=== PATIENT | female | born 1960 | race Caucasian/White ===

== ENCOUNTER → 2020-08-14 | Day surgery (SDC) | payer BC ==
[2020-08-14] VITALS (7 sets, daily range): BP systolic 138–161; BP diastolic 72–85
[~2020-08-14] VITALS: Ht 170.2 cm; Wt 95.3 kg
[~2020-08-14] MED LIST: Atropine Sulfate 0.4mg/ml inj IVP PRN; BSS 15ml BTL ONE; BSS 500ml btl ONE; Bupivacaine 0.75% 30ml vial INJ ONE; Cyclopentolate 2% Opth Sol LEFT EYE ONE; DiphenhydrAMINE 50mg/ml Inj IVP PRN; EPINEPHrine 1mg/1ml Amp ONE; Goniotaire 2.5% Opth Soln - 15ml ONE; HYDROcodone/Acetamin 5/325 tab ORAL PRN; HYDROcodone/Acetamin 7.5/325 tab ORAL PRN; Hydromorphone 0.5mg/0.5ml inj IVP PRN; Indocyanine Green 25mg Inj INJ ONE; Ketorolac 30mg Inj IV PRN; LORazepam Inj 2mg/ml 1ml IV PRN; LOSARTAN POTASS25 MG ORAL; LR 1000ml 1,000 ML IVLG SCH; LR 1000ml ONE; Labetalol 5mg/ml 20ml vial IV PRN; Lidocaine 1% MPF 10mg/ml 5ml ONE; Lidocaine 4% Amp 5ml ONE; Meperidine 25mg/1ml Inj (FOR RIGORS ONLY) IV PRN; Metoclopramide 10mg/2ml Inj IVP PRN; Midazolam 2mg/2ml Inj IVP PRN; NS Irrig 1000ml ONE; Phenylephrine 2.5% Op 2ml Soln LEFT EYE ONE; Povidone-Iodine 5% opth solution ONE; Sodium Hyaluronate 10 mg/ml 0.85ml ONE; Sterile Water Irrig 1000ml IRRIG ONE; Tetracaine 0.5% Opth 4ml Soln ONE; Tropicamide 1% Opth 15ml Soln LEFT EYE ONE; Vigamox Opth Soln 3ml LEFT EYE ONE; fentaNYL 100 mcg/2 mL IV PRN; oxyCODONE HCL/Acetaminophen 5/325mg ORAL PRN
--- NOTE | 2020-08-14 09:45 | NUR ---
ED Nurse Note: Pt walked in from home for eye surgery @ noon today with Dr. Tuttle. Pt has retinal detachment of left eye. Pt tested positive COVID yesterday with mild symptoms x 1 week. Respirations even and unlabored on room air. Vitals stable as documented. A+Ox4, speaking in complete sentences.
--- NOTE | 2020-08-14 09:52 | Emergency Room Report ---
History of Present Illness General Chief Complaint: General Complaint Source: Patient, Medical Record Present Illness HPI 59-year-old female here for preoperative eyedrops before surgery. Patient has a left retinal detachment. Tested positive for Covid yesterday. Due for repair of left retinal detachment today. Was told that she needs cyclopentolate, moxifloxacin, phenylephrine, tropicamide eyedrops. She has no complaints at this time. Allergies: Coded Allergies: No Known Allergies (Unverified , 08/14/20) COVID-19 Screening Contact w/high risk pt: No Experienced COVID-19 symptoms?: No COVID-19 Testing performed [employer]: Yes COVID-19 Screening: Positive COVID-19 COVID-19 Testing Source: 08/13/20 Patient History Now: No Nursing Documentation-[facility] Hx Hypertension: Yes Review of Systems All Other Systems: negative except mentioned in HPI Physical Exam Vital Signs Date Time Temp Pulse Resp B/P (MAP) Pulse Ox O2 Delivery O2 Flow Rate FiO2 08/14/20 09:42 98.2 91 20 167/88 (114) 96 Room Air Sp02 EP Interpretation: reviewed, normal General Appearance: no apparent distress, alert, non-toxic Head: normocephalic, atraumatic Eyes: bilateral eye normal inspection, bilateral eye PERRL ENT: hearing grossly normal, normal pharynx, no angioedema, normal voice Neck: full range of motion, supple/symm/no masses Respiratory: chest non-tender, lungs clear, normal breath sounds, speaking full sentences Cardiovascular #1: regular rate, rhythm, no edema Cardiovascular #2: 2+ carotid (R), 2+ carotid (L), 2+ radial (R), 2+ radial (L), 2+ dorsalis pedis (R), 2+ dorsalis pedis (L) Gastrointestinal: normal bowel sounds, non tender, soft, non-distended, no guarding, no rebound Rectal: deferred Genitourinary: normal inspection, no CVA tenderness Musculoskeletal: back normal, normal range of motion, gait/station normal, non- tender Neurologic: alert, motor strength/tone normal, oriented x3, sensory intact, responsive, speech normal Psychiatric: judgement/insight normal, memory normal, mood/affect normal, no suicidal/homicidal ideation Lymphatic: no adenopathy Medical Decision Making Diagnostic Impression: Primary Impression: Pre-op evaluation ER Course 16-year-old female with left retinal detachment here for preoperative eyedrops before her surgery. Patient had an unremarkable physical examination and was in no acute distress. Normal vital signs. She tested positive for COVID-19 yesterday but had normal oxygen saturation on room air and was in no distress. Patient was given the 4 eyedrops that were indicated on the preoperative checklist from the patient's sales and service advisor. Taken to surgery directly from the emergency department. Last Vital Signs Date Time Temp Pulse Resp B/P (MAP) Pulse Ox O2 Delivery O2 Flow Rate FiO2 08/14/20 09:42 98.2 91 20 167/88 (114) 96 Room Air Reji Lopez M.D. Aug 14, 2020 09:52
--- NOTE | 2020-08-14 10:07 | NUR ---
ED Nurse Note: spoke with Morris in pharmacy who said the eyedrops will be ready for pickup in 15 minutes.
--- NOTE | 2020-08-14 10:25 | NUR ---
ED Nurse Note: called surgery to verify eye drops. Fax sent with medications. Per surgery, okay to give eyedrops now.
--- NOTE | 2020-08-14 11:52 | Anethesia Preoperative Eval ---
Anesthesia Pre-op PMH/ROS General Date of Evaluation: Aug 14, 2020 Time of Evaluation: 11:46 Anesthesiologist: Carla ASA Score: ASA 3 Mallampati Score Class I : Soft palate, uvula, fauces, pillars visible Class II: Soft palate, uvula, fauces visible Class III: Soft palate, base of uvula visible Class IV: Only hard plate visible Mallampati Classification: Class III Surgeon: Marry Diagnosis: Retinal Detachment Surgical Procedure: Vitrectomy OS Anesthesia History: none Family History: no anesthesia problems Allergies: Coded Allergies: No Known Allergies (Unverified , 08/14/20) Medications: see eMAR Patient NPO?: Yes Past Medical History Cardiovascular: Reports: HTN Hematology/Immune: Reports: other - Covid + Other: obesity - BMI 35 Anesthesia Pre-op Phys. Exam Physician Exam Last Vital Signs Date Time Temp Pulse Resp B/P (MAP) Pulse Ox O2 Delivery O2 Flow Rate FiO2 08/14/20 09:42 98.2 91 20 167/88 (114) 96 Room Air Constitutional: NAD Neurologic: CN 2-12 intact Cardiovascular: RRR Respiratory: CTA Gastrointestinal: S/NT/ND Airway Exam Mallampati Score: Class III MO: full ROM: limited Teeth: missing, intact Anesthesia Pre-op A/P Risk Assessment & Plan Assessment: ASA 3 Plan: TIVA Status Change Before Surgery: No Samuel Aguirre MD Aug 14, 2020 11:52
--- NOTE | 2020-08-14 11:55 | Immediate Post-Op Evaluation ---
Immediate Post-Op Evalulation Immediate Post-Op Evalulation Procedure: Vitrectomy OS Date of Evaluation: Aug 14, 2020 Time of Evaluation: 14:02 IV Fluids: 800 L:R Blood Products: 0 Estimated Blood Loss: 3 Urinary Output: 0 Blood Pressure Systolic: 146 Blood Pressure Diastolic: 83 Pulse Rate: 86 Respiratory Rate: 18 O2 Sat by Pulse Oximetry: 100 Temperature (Fahrenheit): 97.6 Pain Score (1-10): 2 Nausea: No Vomiting: No Complications 0 Patient Status: awake, reacts, patent, none Hydration Status: adequate Samuel Aguirre MD Aug 14, 2020 11:55
--- NOTE | 2020-08-14 12:15 | NUR ---
ED Nurse Note: Pt transferred safely to OR. Pt left with all belongings.
--- NOTE | 2020-08-14 13:50 | 48 Hour Post Anesthesia Eval ---
Post Anesthesia Evaluation Procedure: Vitrectomy OS Date of Evaluation: Aug 14, 2020 Time of Evaluation: 16:23 Blood Pressure Systolic: 164 0: 91 Pulse Rate: 89 Respiratory Rate: 18 Temperature (Fahrenheit): 98 O2 Sat by Pulse Oximetry: 92 Airway: patent Nausea: No Vomiting: No Pain Intensity: 2 Hydration Status: adequate Cardiopulmonary Status: Stable Mental Status/LOC: patient returned to baseline Follow-up Care/Observations: 0 Post-Anesthesia Complications: 0 Follow-up care needed: ready to discharge Samuel Aguirre MD Aug 14, 2020 13:50
--- NOTE | 2020-08-14 14:22 | Brief Operative Note ---
Immediate Post Operative Note Operative Note Pre-op Diagnosis: rhegmatogenous retinal detachment os Procedure: pars plana vitrectomy, scleral buckle, endolaser, retinal reattachment with gas OS Post-op Diagnosis: same as pre op Post-op Diagnosis: same as pre-op Surgeon: Marry Anesthesiologist: Carla Anesthesia: local, MAC Specimen: none Complications: none Condition: stable Fluids: o Estimated Blood Loss: none Drains: none Implant(s) used?: Yes Samy Tuttle MD Aug 14, 2020 14:22
--- NOTE | 2020-08-14 21:59 | Operative Note - Dictated ---
DATE OF OPERATION: 08/14/2020 PREOPERATIVE DIAGNOSIS: Rhegmatogenous retinal detachment, left eye. POSTOPERATIVE DIAGNOSIS: Rhegmatogenous retinal detachment, left eye. PROCEDURE: Pars plana vitrectomy with scleral buckle, left eye. SURGEON: Samy Tuttle M.D. HOSPITAL SCIENTIST: Unassisted. ANESTHESIA: Local (4% lidocaine, 0.75% bupivacaine via retrobulbar injection). COMPLICATIONS: None. DESCRIPTION OF PROCEDURE: After informed consent was obtained, clearance from Anesthesia, identification by Dr. Tuttle, the patient was brought into the operating room, where she received her anesthetic injections and her left eye was prepped and draped in usual sterile ophthalmic fashion. A wire lid speculum was placed in the conjunctival fornices and a 360-degree peritomy was created using Carrie scissors and 0.3 forceps. The inferior rectus muscle was then isolated using Mihir muscle hook and bridled using a 2-0 silk tie with a Robe muscle hook. In a similar fashion, the lateral, medial, and superior rectus muscles were all isolated and bridled. The #5-0 nylon suture was then placed in each of the quadrants of the eye with the anterior aspect of the suture at the level of the muscle insertion, the posterior aspect of the suture 9 mm . The #287 scleral buckle was presoaked in antibiotic solution. A 3-port 23-gauge vitrectomy was then created in this aphakic patient. Trocars and cannulas were placed 4 mm posterior to the surgical limbus supratemporally, supranasally, and inferotemporally. Once the infusion cannula was noted to be inside the eye, infusion was turned on. The cortical vitreous was then removed from the posterior surface of the lens to the surface of the retina and the vitreous was excised to the vitreous base. The retina was noted to be detached preoperatively from 11 and in addition a new horseshoe tear with localized detachment was noted at 5 o'clock. Other breaks at 1 o'clock, 12 o'clock, and 2 o'clock were noted. No other holes or tears were noted. At this point, the microscope was removed from the surgical field. The #287 scleral buckle was placed into each of the sutures and into each of the muscle and tied to itself just below the lateral rectus muscle. At this point, the microscope was brought back into the surgical field and additional vitreous base dissection was performed and Perfluorocarbon liquid was then injected into the eye and the retina flattened nicely. At this point, laser was placed around each of the break. Approximately 1000 shocks were applied using a power of 400 mW and exposure time of 0.05 seconds. A good uptake was noted to pass through all the applications. In addition, laser was done along the margin of the scleral buckle in the periphery. Fluid-air exchange was performed. The retina remained detached and the air was then exchanged with an 18% mixture of SF6 gas. The trocar and cannulas were then removed. The wounds were noted to be airtight. The conjunctiva was closed using 6-0 plain suture. Subconjunctival cefazolin, Decadron, and topical atropine drops were placed and the eye was patched and shielded, and the patient left the operating room in a stable condition. Samy Tuttle M.D. DR: CHENTE JOB#: [id number] CC:
--- NOTE | 2020-08-15 07:14 | Pre-op HX & Phy Repo 2 SIG ---
DATE OF ADMISSION: 08/14/2020 HISTORY OF PRESENT ILLNESS: The patient is a pleasant 59-year-old woman who when she developed hemorrhagic posterior vitreous detachment. She was noted to have improvement in her vision on July 30 with resolution of the hemorrhage. She returned again on August 13 with a 2-day history of vision loss, was noted to have a rhegmatogenous retinal detachment in her left eye. She is now being admitted for pars plana vitrectomy and scleral buckle reattachment to her left eye. PAST MEDICAL HISTORY: Remarkable for hypertension. She is positive for COVID-19 antigen. COVID-19 PCR is pending. She has no COVID-19 symptoms. PAST SURGICAL HISTORY: Unremarkable. MEDICATIONS: Include losartan. ALLERGIES: She has no known drug allergies. PHYSICAL EXAMINATION: Her visual acuity is 20/20- in the right eye and 25/100 in the left eye. Tension is 17 in the right eye and 15 in left eye. Slit-lamp demonstrates the conjunctivae quiet. Corneas are clear. The anterior chambers are quiet. There is a trace nuclear sclerosis to the the lens in OU. Dilated vitreoretinal examination in the right eye demonstrates clear median. There is posterior vitreous detachment present. The cup-to-disc ratio is 0.2. Macula, vessels and periphery are physiologic with no holes or tears. Examination of the left eye demonstrates trace hemorrhage in the median. There is posterior vitreous detachment present. There is a rhegmatogenous retinal detachment present from 11 to 4 o'clock. Horseshoe tear has been noted at 12 o'clock with 2 smaller horseshoe tears at o'clock. No other holes or tears were noted. There is some retinal fluid in the macula. IMPRESSION: Rhegmatogenous retinal detachment, left eye. PLAN: I discussed my findings with the patient. After detailed discussion of risks, benefits, and alternatives, we recommended vitrectomy and scleral buckle to the left eye. Complications up to including loss of vision, loss of eye discussion understands and agrees to the surgery. Samy Tuttle M.D. DR: MARISOL JOB#: [id number] CC:
== END | disposition home or self-care (01) ==
LOC: EMR 10:00 → SUR 10:50 → EDBEDREQ 11:18
DX: H33.002 Unspecified retinal detachment with retinal break, left eye (principal); I10 Essential (primary) hypertension; E66.9 Obesity, unspecified; Z68.32 Body mass index [BMI] 32.0-32.9, adult; Z79.899 Other long term (current) drug therapy
CPT/HCPCS: 67108; 94003; 99285; J0171; J0690; J1100; J2250; J2704; J3490; J7120; 94150